=== PATIENT | female | born 1995 | race Two or more races ===

== ENCOUNTER 2017-04-21 09:51 | Emergency (ER) | payer OTHER ==
[2017-04-21 10:44] LABS: D-DIMER QUANT 459.9 ng/ml (<500)
[2017-04-21 10:48] LABS: CONTROL LINE HCG INT CTR LINE PRESENT; HCG, SERUM QUALITATIVE NEGATIVE (NEGATIVE)
[2017-04-21 10:56] LABS: ANION GAP 5 MEQ/L (8-16); BLOOD UREA NITROGEN 15 MG/DL (7-18); CALCIUM LEVEL 8.8 MG/DL (8.5-10.1); CARBON DIOXIDE LEVEL 28 MEQ/L (21-32); CHLORIDE LEVEL 105 MEQ/L (98-107); CPK CREATINE PHOSPHOKINASE 70 U/L (26-192); CREATININE FOR GFR 0.69 MG/DL (0.55-1.02); GLOMERULAR FILTRATION RATE > 60.0 (>60); GLUCOSE, FASTING 114 MG/DL (70-105); POTASSIUM SERUM 4.3 MEQ/L (3.5-5.1); SODIUM LEVEL 138 MEQ/L (136-145); TROPONIN I < 0.02 NG/ML (< 0.10)
[2017-04-21 11:02] LABS: MB/CK RELATIVE INDEX 1.42 (< OR =4)
[2017-04-21 11:43] LABS: BASO % 0.1 % (0.0-1.0); EOS % 0.3 % (0.0-3.0); HEMATOCRIT 42.7 % (36.0-47.0); HEMOGLOBIN 14.5 g/dl (12.0-16.0); IMMATURE GRANULOCYTE % 0.1 % (0-0); LYMPH # 1.8 10^3/uL (1.5-6.5); LYMPH % 23.9 % (24.0-44.0); MEAN CORPUSCULAR HEMOGLOBIN 30.7 pg (27.0-33.0); MEAN CORPUSCULAR VOLUME 90.3 fl (80.0-96.0); MONO # 0.3 10^3/uL (0.0-0.8); MONO % 3.8 % (0.0-5.0); NEUTROPHILS # 5.5 10^3/uL (1.8-7.7); NEUTROPHILS % 71.8 % (36.0-66.0); PLATELET COUNT, AUTOMATED 262 10^3/uL (150-450); RED BLOOD COUNT 4.73 10^6/uL (4.00-5.40); RED CELL DISTRIBUTION WIDTH 11.8 % (11.5-14.5); WHITE BLOOD COUNT 7.7 10^3/uL (4.0-10.0)
[2017-04-21] MEDS ORDERED: ISOVUE-370 76% 100ML VIAL (Q9967) As Ordered (11:49)
[2017-04-21 13:57] LABS: CPK CREATINE PHOSPHOKINASE 64 U/L (26-192); MB/CK RELATIVE INDEX 1.56 (< OR =4); TROPONIN I < 0.02 NG/ML (< 0.10)
== END 2017-04-21 14:32 | disposition home or self-care (01) ==
LOC: M ED 09:51
DX: R07.89 Other chest pain (principal); F41.9 Anxiety disorder, unspecified; Z88.1 Allergy status to other antibiotic agents; Z82.49 Family history of ischemic heart disease and other diseases of the circulatory system; Z81.8 Family history of other mental and behavioral disorders
CPT/HCPCS: Q9967

== ENCOUNTER 2018-02-03 14:01 | Emergency (ER) | payer OTHER ==
[2018-02-03 14:42] LABS: CONTROL LINE UCG INT CTR LINE PRESENT; URINE PREG TEST NEGATIVE (NEGATIVE)
[2018-02-03 14:53] LABS: KETONE, URINE AUTO RFX NEGATIVE (NEGATIVE); NITRITE, URINE AUTO RFX NEGATIVE (NEGATIVE); RBC, URINE AUTO RFX 0 /HPF (0-3); SPECIFIC GRAVITY UR AUTO RFX 1.012 (1.002-1.035); SQUAM EPITHELIAL CELL UR AURFX 6 /HPF (0-6)
[2018-02-03 14:54] LABS: LEUKOCYTE ESTERASE UR AUTO RFX 3+ (NEGATIVE); WBC, URINE AUTO RFX 108 /HPF (0-3)
== END 2018-02-03 15:37 | disposition home or self-care (01) ==
LOC: M ED 14:01
DX: N39.0 Urinary tract infection, site not specified (principal)
CPT/HCPCS: 84703

== ENCOUNTER 2018-06-18 13:02 | Emergency (ER) | payer OTHER ==
[~2018-06-18] VITALS: Ht 160 cm; Wt 59.1 kg
[~2018-06-18 13:02] MED LIST: ASPI81TA85 PO; CIPR-249 PO; IBUP-1022 PO; PROM50TA4 PO; ZOFR4TAB14 SL
[2018-06-18] MEDS ORDERED: LOES1TAB9 PO (13:23)
[2018-06-18 13:58] LABS: BASO % 0.2 % (0.0-1.0); EOS % 0.2 % (0.0-3.0); HEMATOCRIT 39.2 % (36.0-47.0); HEMOGLOBIN 13.9 g/dl (12.0-15.5); LYMPH # 1.6 10^3/uL (1.5-6.5); LYMPH % 18.8 % (24.0-44.0); MEAN CORPUSCULAR HEMOGLOBIN 31.4 pg (27.0-33.0); MEAN CORPUSCULAR HGB CONC 35.5 g/dl (32.0-36.5); MEAN CORPUSCULAR VOLUME 88.5 fl (80.0-96.0); MONO # 0.5 10^3/uL (0.0-0.8); MONO % 5.9 % (0.0-5.0); NEUTROPHILS # 6.2 10^3/uL (1.8-7.7); NEUTROPHILS % 74.7 % (36.0-66.0); PLATELET COUNT, AUTOMATED 283 10^3/uL (150-450); RED BLOOD COUNT 4.43 10^6/uL (4.00-5.40); WHITE BLOOD COUNT 8.4 10^3/uL (4.0-10.0)
[2018-06-18 14:39] LABS: BLOOD UREA NITROGEN 17 MG/DL (7-18); CALCIUM LEVEL 8.3 MG/DL (8.5-10.1); CARBON DIOXIDE LEVEL 29 MEQ/L (21-32); CHLORIDE LEVEL 106 MEQ/L (98-107); CREATININE FOR GFR 0.85 MG/DL (0.55-1.30); GLOMERULAR FILTRATION RATE > 60.0 (>60); GLUCOSE, FASTING 62 MG/DL (70-100); HCG, SERUM QUANTITATIVE < 1.0 MIU/ML; SODIUM LEVEL 140 MEQ/L (136-145)
[2018-06-18] MEDS ORDERED: holter monitor (15:08)
[2018-06-18 15:52] VITALS: BP 94/58
--- NOTE | 2018-06-19 07:01 | ECGEPIP ---
Stationary ECG Study [facility] - ED Test Date: 2018-06-18 Pat Name: SHEBA CASTRO Department: Room: - Gender: F Tax Staff Accountant: TC : 1995 Requested By: Tania Cross Order Number: [id number] Reading MD: Jean Trevizo Measurements Intervals [place] Rate: 97 P: 38 MA: 158 QRS: 62 QRSD: 84 T: 46 QT: 333 QTc: 423 Interpretive Statements SINUS RHYTHM BENIGN EARLY REPOLARIZATION SIMILAR TO 04/21/17 Electronically Signed On 06-19-2018 7:01:25 EST by Jean Trevizo
== END 2018-06-18 15:57 | disposition home or self-care (01) ==
LOC: M ED 13:02
DX: R55 Syncope and collapse (principal); F41.9 Anxiety disorder, unspecified; F17.210 Nicotine dependence, cigarettes, uncomplicated; Z88.1 Allergy status to other antibiotic agents; Z82.49 Family history of ischemic heart disease and other diseases of the circulatory system; Z79.899 Other long term (current) drug therapy; Z79.3 Long term (current) use of hormonal contraceptives

== ENCOUNTER → 2018-06-24 | Outpatient (CLI) | payer OTHER ==
[~2018-06-24] MED LIST changes: +LOES1TAB9 PO; +holter monitor
--- NOTE | 2018-06-27 20:40 | HOLTMON ---
[facility] Test Date: 2018-06-24 Pat Name: SHEBA CASTRO Department: Room: - Gender: Wind Technician: Cara Rojas/ROMAINE VELEZ : 1995 Requested By: Tania Cross Order Number: [id number] Reading MD: Bandar Lima Interpretive Statements No atrial fibrillation was seen.MOTHER-RI For reason unknown the patient was detached from the monitor on day 2 from 01:14 until end of monitoring period at 11:14 Heart rate variability was normal. There was minimal ectopy. No significant ST events or pauses. With her complaint of dizziness on 3 different episodes,her rhythm was sinus. Unremarkable Holter monitor. Electronically Signed On 06-27-2018 20:40:20 EDT by Bandar Lima
== END ==
LOC: M EKG 10:49 → M RAD 10:49
PROVIDERS: ATTEND Emergency Medicine
DX: R55 Syncope and collapse (principal)